=== PATIENT | female | born 1980 | race Caucasian/White ===

== ENCOUNTER → 2016-12-26 | Outpatient (CLI) | payer OTHER ==
[~2016-12-26] MED LIST: HYDROCODON-ACE1 EAC9; NEURONTIN800 MG PO; SEROQUEL PO; SEROQUEL XR150 MG PO; VICODIN 5/500 T1 TAB PO; VISTARIL PO; WELLBUTRIN SR150 MG PO
--- NOTE | ~2016-12-26 | US24 ---
[facility] A Service of [facility] RADIOLOGY TEXT RESULTS PATIENT: CHELSEA HERRERA LOCATION: [facility] : [birth year] UNIT #: [id number] AGE: [address]: Terrell Palomino MD SEX: F ORDER DR: [id number] [facility] [address] [place], [place] [address] [id number] O MR#: [id number] Acc #: [id number] NAME: CHELSEA HERRERA : 1980 SEX: F STUDY DATE/TIME: 12/26/2016 13:33 UNIT: [facility] ROOM: STUDY DESCRIPTION: US Breast Unilateral Attending Physician: Terrell Palomino M.D. Ordering Physician: Terrell Palomino M.D. Primary Care Physician: Tere iDas M.D. MEDICAL IMAGING REPORT This report is preliminary unless electronic signature is present EXAM Right breast diagnostic ultrasound, 12/26/2016 HISTORY Right breast green nipple discharge spontaneously for the past 2 months. Chronic right lateral breast pain. History of previous right breast excisional biopsy. COMPARISON Bilateral diagnostic mammogram 12/26/2016. Right breast outside ultrasound 12/26/2014 and 08/03/2014. Outside bilateral screening mammogram 06/01/2015. FINDINGS Targeted sonographic imaging was performed of the right breast with attention to the subareolar regions. Of note, online images were initially marked incorrectly as left. However, true right breast ultrasound was performed. Architectural distortion features are demonstrated in the right breast consistent with findings on mammogram, and consistent with history of excisional biopsy. However, no definite mass lesion is seen. Certainly, there is no evidence of ductal ectasia or intraductal lesion. IMPRESSION Please refer to the diagnostic mammogram report from this same day for full description of mammographic and sonographic findings and recommendations. Patients over the age of 40 are entered into a reminder system with target due date for the next mammogram. A result letter will also be sent to the patient. BIRADS: 2 Benign Finding [facility] A Service of [facility] RADIOLOGY TEXT RESULTS PATIENT: CHELSEA HERRERA LOCATION: [facility] #: [id number] : [birth year] UNIT #: [id number] AGE: [address]: Terrell Palomino MD SEX: F ORDER DR: STAT * RESULT Dictated by... Inna Alegre M.D. THIS IS AN ELECTRONICALLY VERIFIED REPORT Inna Alegre M.D. at 12/29/2016 9:28 AM Ana Maria TD: 12/26/2016 15:34 JOB #: [id number] MEDICAL IMAGING REPORT Page 1 of 1 COPY
--- NOTE | ~2016-12-26 | MY26 ---
[facility] A Service of [facility] RADIOLOGY TEXT RESULTS PATIENT: CHELSEA HERRERA LOCATION: [facility] : [birth year] UNIT #: [id number] AGE: [address]: Terrell Palomino MD SEX: F ORDER DR: [id number] [facility] [address] [place], [place] [address] [id number] O MR#: [id number] Acc #: [id number] NAME: CHELSEA HERRERA : 1980 SEX: F STUDY DATE/TIME: 12/26/2016 12:47 UNIT: [facility] ROOM: STUDY DESCRIPTION: [facility] W/ CAD BILAT Attending Physician: Terrell Palomino M.D. Ordering Physician: Terrell Palomino M.D. Primary Care Physician: Tere Dias M.D. MEDICAL IMAGING REPORT This report is preliminary unless electronic signature is present EXAM Bilateral digital diagnostic mammogram with CAD DATE 12/26/2016 HISTORY 36-year-old female with a history of benign right breast excisional biopsy in August 2015. Now with complaints of chronic right lateral breast pain since 2014, and for the past 2-months has had greenish-white nipple discharge. Patient states nipple discharge is spontaneous. COMPARISON Bilateral diagnostic mammogram 06/01/2015, right breast subareolar ultrasound 06/22/2015 and 06/01/2015, performed at [facility] in [place], [place]. FINDINGS CC, MLO, and true lateral views were obtained of each breast utilizing digital technique and reviewed with an FDA-approved CAD device. Scattered fibroglandular densities are present bilaterally. There is architectural distortion within the lateral right breast mid to anterior third with skin retraction and volume loss in the right breast, consistent with a history of previous excisional biopsy. However, no focal suspicious nodule is seen within either breast. No microcalcifications are identified. Scattered fibroglandular densities. Given the patient's history of spontaneous nipple discharge, targeted subareolar right breast ultrasound was performed on this same date to evaluate for ductal ectasia. However, no abnormally dilated ducts or intraductal type lesions are identified. No mass lesions are evident. There is some postsurgical architectural distortion features laterally, STS. [facility] A Service of [facility] RADIOLOGY TEXT RESULTS PATIENT: CHELSEA HERRERA [facility] #: [id number] : [birth year] UNIT #: [id number] AGE: [address]: Terrell Palomino MD SEX: F ORDER DR: consistent with a history of prior surgery. IMPRESSION BIRADS category 2. Benign findings. Postsurgical changes of the right breast. There are no mammographic or sonographic features suspicious for malignancy. There is no imaging explanation for the patient's right breast spontaneous green nipple discharge. No explanation for chronic right breast pain. The patient is currently on antibiotic therapy for her nipple discharge. Any further management should be made upon clinical assessment. Otherwise, routine bilateral screening mammogram would be recommended in 1 year. Patients over the age of 40 are entered into a reminder system with target due date for the next mammogram. A result letter will also be sent to the patient. BIRADS: 2 Benign finding. Dictated by... Inna Alegre M.D. THIS IS AN ELECTRONICALLY VERIFIED REPORT Inna Alegre M.D. at 12/29/2016 9:29 AM LORRI/christiano TD: 12/26/2016 16:20 JOB #: [id number] MEDICAL IMAGING REPORT Page 1 of 1 COPY
== END | disposition home or self-care (01) ==
LOC: CMAM 12:02
DX: Z98.890 Other specified postprocedural states (principal)
CPT/HCPCS: 76641; G0204